=== PATIENT | male | born 1985 | race Caucasian/White ===

== ENCOUNTER 2021-09-29 14:30 | Outpatient (RCR) | payer OTHER, SELFPAY ==
--- NOTE | 2021-09-01 15:57 | HP.PTEVAL ---
Patient's Visit Information KAYA AGUSTIN is a 36 year old M referred to Physical Therapy by Dr. Kraig Lao DO with a diagnosis of R shoulder/ chronic instability ant/post. Date of Evaluation: 09/01/21 Physical Therapist: YOLI Brennan - Visit Plan Frequency: 2x /Week Duration: 4 Weeks Plan: 2X/ week for 4 weeks for shoulder stabilization exercises, scapular stabilization at 45-90 degrees elevation and progress to proper lifting techniques. (Pt has pain with wide lat pull downs, bench press, and sometimes with straight arm FW flexion). HEP: BLUE ER/IR with towel - Subjective Pt reports that he has R shoulder pain. Currently it is not hurting today. Dr said that he needs stability in his shoulder. Pt reports that he was swinging something and his shoulder popped out and went back into place on its own. He had pain after that for awhile (1-2) weeks. Pt noticed pain starting off and on again since then. All overhead press increases the pain. This week to do a slight incline bench it is sore. In the morning to cross midline to grab a coffee can causes pain while doing the motion. He can not lay on that side cause it starts to hurt after awhile. He has had N&T into the fingers. The week before last he was sleeping on that side and woke him up and he had tingling in his fingers and sitting at restoration into horizontal abduction or picking up his son (40 elvis pounds). L handed - Pain R shoulder pain Pain Intensity (Out of 10): 0 - Objective R 170# L 175#. Pt has increase scapular clunking and hypermobile of scapular with certain ER and abd movements. bicep 1#/3 B. Shoulder AROM: R: Flexion 175 degrees, abd 162 degrees, ER 50, IR T8. L: Flexion and abd 180 degrees, ER 55, IR 8. R shoulder MMT: flex 24.8, (18.3), ABD 19.3, ER 24, IR 21.4. L shoulder MMT: flex 27.2 (23.2), ABD 24.5, ER 26.2, IR 22.4. Posture: sits with rounded shoulders - Balance/Special Test Scores Quick DASH Score: 15.0000 - Goals Goal 1:: I HEP Goal Time Frame: 8-12 Weeks Goal 2:: Be able to bench press without pain. Goal Time Frame: 6-8 Weeks Goal 3:: Be able to chicken picker son without having shoulder pain Goal Time Frame: 6-8 Weeks Goal 4:: Sit with upright posture during treatment session/ during the day. Goal Time Frame: 6-8 Weeks - Rehabilitation Potential Rehabilitation Potential: Good - Anticipated Interventions Patient/Client Instruction: Educate patient on: Condition, Plan of Care For the Purpose of:: To decrease pain, To increase ROM, To improve nutrient delivery to tissue, To improve muscle performance and motor function, To improve ability to perform ADL's, To increase tolerance to activity/condition/position, To improve performance and independence with ADL's, To decrease level of supervision to perform tasks, To improve ability of physical actions for home/community/work/leisure, To improve health of tissue, To decrease soft tissue restriction, To increase flexibility/ROM Therapeutic Exercise to Include: Strength training, Body mechanics, Postural training, Flexibilty training, Passive ROM, Active ROM, Scapular Strength/Stabilization For the Purpose of:: To decrease pain, To increase ROM, To improve nutrient delivery to tissue, To improve muscle performance and motor function, To improve ability to perform ADL's, To increase tolerance to activity/condition/position, To improve performance and independence with ADL's, To decrease level of supervision to perform tasks, To improve ability of physical actions for home/community/work/leisure, To improve health of tissue, To decrease soft tissue restriction, To increase flexibility/ROM Manual Therapy Techniques to Include: Passive ROM, Soft tissue mobilization For the Purpose of:: To decrease pain, To increase ROM, To improve nutrient delivery to tissue, To improve muscle performance and motor function, To improve ability to perform ADL's, To increase tolerance to activity/condition/position, To improve performance and independence with ADL's, To decrease level of supervision to perform tasks, To improve ability of physical actions for home/community/work/leisure, To improve health of tissue Thank you for the opportunity to evaluate your patient. For Medicare and Medicare HMO plans, please review the plan of care and approve it. It will need to be FAXED BACK to us at [phone] for Medicare purposes. For Medicare only, by signing this I certify the plan of care. Please let me know if there are questions or concerns regarding this plan of care. Physician Signature: Date:
--- NOTE | 2021-09-29 14:59 | HP.PTDCSUM_ITS ---
It has been my pleasure to treat KAYA AGUSTIN referred by Dr. Kraig Lao DO, with the diagnosis of R shoulder/ chronic instability ant/post for a total of 6 visit(s). Discharge Date: 09/29/21 Please see the following information for a summary of their discharge status. Subjective: Pt reports no pain today and the clicking seems to be getting better. He still feels that looseness and feels a lot more wilder. Has not tried to pick his son straight up or not. He tried bench pressing again and he had no pain and some clicking going on. Ususally no pain with the clicking. Still pain with a wide lat pull down. He thinks that he is good with continuing on his own. R shoulder pain Pain Intensity (Out of 10): 0 % Improvement: 80 Objective/Function: Pt has full AROM and full 5/5 strength. Pt has more stability with ROM. He still has B scapular winging. Goal 1:: I HEP Goal Progress: Goal Met Goal 2:: Be able to bench press without pain. Goal Progress: Goal Met Goal 3:: Be able to supervisor opening and picking son without having shoulder pain Goal Progress: Has not tried. Goal 4:: Sit with upright posture during treatment session/ during the day. Goal Progress: Progressing Plan: Re-check next visit. 2X/ week for 4 weeks for shoulder stabilization exercises, scapular stabilization at 45-90 degrees elevation and progress to proper lifting techniques. (Pt has pain with wide lat pull downs, bench press, and sometimes with straight arm FW flexion). HEP: BLUE ER/IR with towel Discharge Comments: DC PT to HEP If there are questions or concerns regarding this patient's physical therapy, please feel free to call me at [phone]. Thank you for the referral of this patient. Sincerely, Bina Grover, MPT Balance/Gait/Functional tests - Balance/Special Test Scores Quick DASH Score: 2.2725
== END 2021-09-29 19:00 | disposition home or self-care (01) ==
LOC: PT 14:30
PROVIDERS: Referring Provider Orthopaedic Surgery; Visit Provider Orthopaedic Surgery
DX: M25.311 Other instability, right shoulder (principal)
CPT/HCPCS: 97110; 97161